=== PATIENT | male | born 1970 | race Caucasian/White ===

== ENCOUNTER 2016-04-25 21:29 | Emergency (ER) | payer OTHER ==
--- NOTE | 2016-04-25 21:33 | UCPHY ---
H & P Patient Type: New HPI/ROS: CHIEF COMPLAINT: Left ear pain. HISTORY OF PRESENT ILLNESS: The patient is a 46-year-old male who presents with left-sided ear pain since this afternoon. He reports that the pain is elicited when he presses on the anterior portion of his ear, overlying the tragus, but not when he sticks his finger in his ear. The pain does not radiate. It is moderate in nature. He reports having had mild balance issues over the past week. No fever, vomiting, or other complaints. He denies recent international travel. REVIEW OF SYSTEMS: Constitutional: No fever, no chills. ENT: No sore throat. No change in hearing. No diplopia Musculoskeletal: No back pain. Skin: No rashes. Neurological: No headache. Past Medical/Surgical History: Denies. Social History: Here alone. Physical Exam: General Appearance: Alert, no distress. Afebrile. Normal phonation. No respiratory distress. Obese Eyes: Pupils equal and round no pallor or injection. No icterus ENT, Mouth: Mucous membranes moist. Pharynx not erythematous and without exudate. TM Clear. Tenderness present with palpation of the tissues at the tragus but I cannot feel any nodularity. There is no overlying erythema. The canals are normal without any encroachment, edema, or erythema. He can hear 2 fingers rubbed, bilaterally. Neck: No adenopathy. Supple. No JVD. Trachea in midline. Psychiatric: Normal affect Constitutional: Initial Vital Signs Temperature (C) 37.2 C 04/25/16 21:48 Heart Rate 92 04/25/16 21:48 Respiratory Rate 18 04/25/16 21:48 Blood Pressure 124/92 H 04/25/16 21:48 O2 Sat (%) 94 04/25/16 21:48 O2 Delivery Mode Room Air Allergies/Adverse Reactions: No Known Allergies Allergy (Verified 04/25/16 21:45) Home Medications: Medication Instructions Recorded Cephalexin [Keflex (*)] 500 mg PO TID #21 cap 04/25/16 Oxycodone HCl 04/25/16 Xanax 04/25/16 Medical Decision Making - Data Points Medications Given: Discontinued Medications Cephalexin (Keflex 500 Mg Prepack#4) 1 btl TAKEHOME EDNOW ONE Stop: 01/22/17 22:05 Last Admin: 04/25/16 22:15 Dose: 1 btl Departure - Departure Disposition: Home, Routine, Self-Care Clinical Impression: Cellulitis Condition: Good Instructions: Cellulitis (ED) Additional Instructions: Take Keflex as prescribed for the full course. Adult Pain & Fever Control: We recommend Acetaminophen (Tylenol) and Ibuprofen (Motrin,Advil) for pain and fever control. When fever is high or pain severe, both drugs can be used at the same time, but at different intervals. Please note the time differences. Your dose is: Acetaminophen 650mg every 4 to 6 hours Ibuprofen 600mg every 6-8 hours with food. Note: do not take Acetaminophen with Hydrocodone (Vicodin, Lortab) or Oycodone (Percocet). These medications also contain Acetaminophen. No more than 3000mg of Acetaminophen should be taken in 24 hours (for an adult). Referrals: THUY BUNN [Primary Care Provider] - As per Instructions Prescriptions: Cephalexin [Keflex (*)] 500 mg PO TID #21 cap - PQRS PQRS Measurement: Not applicable Report Scribed for: Mahesh Albarran Report Scribed by: Ryland Judge Date of Report: 04/25/16 Time of Report: 21:50
[2016-04-25 21:51] VITALS: BP 124/92; PULSE 92; RESP 18; TEMP 99; O2SAT 94
[2016-04-25] MEDS ORDERED: CEPHALEXIN 500MG PREPACK#4 BTL TAKEHOME ONE (22:04)
== END 2016-04-25 22:19 | disposition home or self-care (01) ==
LOC: CED 21:29
DX: H60.12 Cellulitis of left external ear (principal)
CPT/HCPCS: 99203-PO; G0463-PO

== ENCOUNTER 2016-08-02 10:11 | Emergency (ER) | payer OTHER ==
[2016-08-02 10:17] VITALS: BP 144/81; PULSE 78; RESP 18; TEMP 98; O2SAT 93
[2016-08-02] MEDS ORDERED: PROPARACAINE 0.5% 15 ML OPHT DROP LEFTEYE ONE (10:19)
[2016-08-02] MEDS ORDERED: FLUORESCEIN SODIUM 1 MG STRIP OP ONE (10:22)
--- NOTE | 2016-08-02 11:04 | EDPHY ---
H & P Time Seen by Provider: 08/02/16 10:44 HPI/ROS: CHIEF COMPLAINT: Foreign body left eye History by patient HISTORY OF PRESENT ILLNESS: 38 year man who wears contact lenses presents complaining of foreign body sensation or scratchy in his left eye. Patient was wearing his contact sliced night when he got this feeling. He rinsed his eye seemed to get better but when he removed his contacts later it got worse again. Some associated with any decreased or worsening of his vision, there is no drainage or photophobia. He has disposable lenses and he is 1 these for most longer than he was supposed to. REVIEW OF SYSTEMS: As in HPI, and all other systems reviewed and are negative Smoking Status: Never smoked Physical Exam: Visual Acuity: noted from Nurse's notes. Pupils: equal round and reactive to light EOMI Lids: no edema or swelling Skin: no proptosis, no periorbital erythema or swelling, no vesicles Conjunctivae: Mildly injected, no discharge Cornea: exam with fluorescein shows superficial diffuse corneal abrasion with to punctate lesions near 4 o'clock Anterior chamber: normal, no hyphema or hypopyon Constitutional: Initial Vital Signs Temperature (C) 36.6 C 08/02/16 10:14 Heart Rate 78 08/02/16 10:14 Respiratory Rate 18 08/02/16 10:14 Blood Pressure 144/81 H 08/02/16 10:14 O2 Sat (%) 93 08/02/16 10:14 O2 Delivery Mode Room Air Allergies/Adverse Reactions: No Known Allergies Allergy (Verified 04/25/16 21:45) Home Medications: Medication Instructions Recorded Advair 100/50 (*) 08/02/16 Ciprofloxacin HCl [Ciprofloxacin 0.5 each OT Q12 #0 droperette 08/02/16 Opth Drops] MDM/Departure - MDM Medications Given: Discontinued Medications Proparacaine HCl (Alcaine 0.5%) 1 drops LEFTEYE ONCE ONE Stop: 08/02/16 10:20 Last Admin: 08/02/16 10:26 Dose: 1 drop ED Course/Re-evaluation: Patient presents with foreign body sensation after wearing contact lenses and diffuse superficial corneal abrasion. 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 - Depart Disposition: Home, Routine, Self-Care Clinical Impression: Corneal abrasion Condition: Good Instructions: Corneal Abrasion (ED) Additional Instructions: You were seen by Dr. Lorin Fischer today. Return for any worsening or new concerns. Use eyedrops as directed. Please follow-up with your eye doctor tomorrow for recheck. Prescriptions: Ciprofloxacin HCl [Ciprofloxacin Opth Drops] 0.5 each OT Q12 #0 droperette Referrals: THUY BUNN [Primary Care Provider] - As per Instructions
== END 2016-08-02 10:50 | disposition home or self-care (01) ==
LOC: CED 10:11
DX: H18.822 Corneal disorder due to contact lens, left eye (principal)